=== PATIENT | female | born 1965 | race Caucasian/White ===

== ENCOUNTER 2024-04-08 07:56 | Day surgery (SDC) | payer BC ==
[2024-04-08] VITALS (15 sets, daily range): BP systolic 135–153; BP diastolic 76–93; PULSE 83–99; RESP 9–16; TEMP 98.9; O2SAT 92–97
[~2024-04-08] VITALS: Ht 170.2 cm; Wt 113.7 kg
[2024-04-08] MEDS: tranexamic acid inj. 1,000 MG in normal saline IV soln 100ML IV ONE (05:30)
[2024-04-08] MEDS: tranexamic acid 100mg/ml inj. ONE (07:10)
[~2024-04-08 07:56] MED LIST: ALPR1TAB7 PO; LIDOcaine 1% w/EPI 1:100,000 inj. MDV 50 ML VIAL ONE; MULT-1249 PO; cocaine 4% topical solution 4ml bottle ONE; epiNEPHrine 1 mg/ml 30ml MDV ONE; mupirocin 2% ointment 22GM ONE; oxymetazoline 15 ML nasal spray NS ONE
[2024-04-08] MEDS: famotidine 20mg tablet PO ONE (08:54)
[2024-04-08] MEDS: oxymetazoline 15 ML nasal spray NS ONE (08:55)
[2024-04-08] MEDS: clindamycin-Cleocin 900mg/D5W 50 ML IV ONE (09:03)
[2024-04-08] MEDS: ringers solution, lacted 1,000 ML IV SCH (09:03)
[2024-04-08] MEDS ORDERED: morphine 4 MG/ML inj SYRINge IV PRN (09:10)
[2024-04-08] MEDS ORDERED: ringers solution, lacted 1,000 ML IV SCH (09:10)
[2024-04-08] MEDS ORDERED: meperidine/PF 25mg/ml syringe IV PRN ×3 (09:10)
[2024-04-08] MEDS ORDERED: proCHLORperazine 10 MG/2 ml inj IV PRN (09:10)
[2024-04-08] MEDS ORDERED: labetalol 20mg/4ml (5mg/ml) syringe IV PRN (09:10)
[2024-04-08] MEDS: cocaine 4% topical solution 4ml bottle TP ONE (09:10)
[2024-04-08] MEDS ORDERED: hydrALAZINE 20mg/ml inj. IV PRN (09:10)
[2024-04-08] MEDS ORDERED: morphine 2 MG/ML inj. syringe IV PRN (09:10)
[2024-04-08] MEDS ORDERED: sevoflurane 250ml liquid IH ONE (09:18)
[2024-04-08] MEDS ORDERED: midazolam 1 mg/ML 2ml injection ONE (09:19)
[2024-04-08] MEDS ORDERED: fentaNYL/PF 50MCG/1 ML 2ML syringe ONE (09:19)
[2024-04-08] MEDS ORDERED: dexamethasone sod phosphate 4mg/ml inj. ONE (09:35)
[2024-04-08] MEDS ORDERED: ondansetron/PF 4mg/2ml inj ONE (09:35)
[2024-04-08] MEDS ORDERED: LIDOcaine 2% (20mg/ml) 5ml vial ONE (09:35)
[2024-04-08] MEDS ORDERED: propofol inj 20 ML IV ONE (09:35)
[2024-04-08] MEDS: ondansetron/PF 4mg/2ml inj IV PRN (11:06)
[2024-04-08] MEDS: acetaminophen 1,000mg/100ml IV 100 ML IV ONE (11:06)
[2024-04-08] MEDS ORDERED: salt irrigation nasal spray 45 ML SPRAY NS PRN (11:45)
== END 2024-04-08 13:07 | disposition home or self-care (01) ==
LOC: PAS 07:56
PROVIDERS: ATTEND Otolaryngology
DX: J34.2 Deviated nasal septum (principal); J34.3 Hypertrophy of nasal turbinates; J32.9 Chronic sinusitis, unspecified; E78.5 Hyperlipidemia, unspecified; F41.9 Anxiety disorder, unspecified; Z79.899 Other long term (current) drug therapy; Z90.49 Acquired absence of other specified parts of digestive tract; Z98.891 History of uterine scar from previous surgery; Z98.890 Other specified postprocedural states; Z88.8 Allergy status to other drugs, medicaments and biological substances; Z88.1 Allergy status to other antibiotic agents; Z91.018 Allergy to other foods
CPT/HCPCS: 82948; A4618; A6402; A6449; A7000; J0131; J0171; J1100; J2250; J2405; J2704; J3010; J3490; J7050; J7120